=== PATIENT | male | born 1945 | race Caucasian/White ===

== ENCOUNTER 2019-05-07 15:04 | Day surgery (SDC) | payer MEDICARE, SELFPAY ==
--- NOTE | 2019-05-07 12:44 | PM.HP.1 ---
History of Present Illness Date Patient Seen: 05/07/19 Time Patient Seen: 13:44 Chief complaint: [id number] Narrative: 73yo M for surveillance colonoscopy for history of polyps. No family history of CRC, no alarm symptoms in patient. Meds Home Medications Medication Instructions Recorded Confirmed Type MULTIVITAMIN 1 cap PO QDAY #0 07/08/13 History [RED RICE YEAST] 2,500 units Q DAY #0 07/08/13 History Allergies Allergy/AdvReac Type Severity Reaction Status Date / Time codeine [CODEINE] AdvReac Intermediate NAUSEA Unverified 03/12/18 12:52 oxycodone [OXYCODONE] AdvReac Mild SLEEPINESS Unverified 03/12/18 12:52 Review of Systems Constitutional Constitutional: Reports as per HPI Exam Vital Signs (past 8 hours): AAO, NAD EOMI, MMM, no scleral icterus unlabored RA soft, nt/nd MAEW visible skin dry and intact Assessment & Plan (1) History of colon polyps: Current visit: No Status: Acute Assessment & Plan narrative: - surveillance colonoscopy --> all R/B/A discussed and pt wishes to proceed
--- NOTE | 2019-05-07 13:32 | PM.OP.ENDO ---
Operative Date/Time/Diagnoses Date of procedure: 05/07/19 Time of procedure: 15:33 Pre-op diagnosis: History of polyps Post-op diagnosis: same Procedure & Clinicians Study performed: Surveillance Colonoscopy Same procedure as scheduled: Yes Indications: 73yo m with history of colon polyps here for 5 year recall. Surgeon: Indy Merchant Procedure Notes SCOAP/Timeout: 1532 Procedure in detail: After obtaining informed consent, the patient was brought to the GI suite and placed in the left lateral decubitus position on the examination table. After placement of appropriate monitors, the patient was given incremental doses of Versed and Fentanyl until an appropriate level of sedation was achieved. A time out was held per SCOAP protocol. A digital rectal examination was performed and did not reveal any masses or obstructing lesions. The colonoscope was gently passed into the patient's anus and the entire colon navigated to the level of the cecum with minimal difficulty. Prep was adequate. Once in the cecum, the scope was slowly withdrawn being sure to go before and beyond all mucosal folds and prominences as able to get a thorough examination. No masses or polyps are noted. Other findings include a prominent ileocecal valve and slightly inverted appendiceal opening. At the level of the rectal vault, the scope was retroflexed and the internal anal canal was examined. The scope was straightened and air aspirated from the colon. The instrument was removed from the patient's body and the procedure was concluded. The patient was allowed to awaken from sedation without difficulty and taken to the post-anesthesia care unit in good condition. Scope withdrawal time: 8 min Sedation minutes: 22 Specimen(s): none sent Complications: none Impression: normal screening colonoscopy Recommendations: Colonscopy in 10 years Follow up: as needed Disposition: PACU
[2019-05-07 15:14] VITALS: BP 141/73; PULSE 63; RESP 16; TEMP 36.9; O2SAT 100; BMI 20.9
[2019-05-07] MEDS: SODIUM CHLORIDE 0.9% 1,000 ML 200 ML IV (15:20)
[2019-05-07] MEDS: MIDAZOLAM 5 MG/5 ML VIAL IV (15:44)
[2019-05-07] MEDS: fentaNYL 250 MCG/5 ML INJ IV (15:45)
[2019-05-07 16:12] VITALS: BP 150/76; PULSE 73; RESP 15; TEMP 37.8; O2SAT 99
[2019-05-07 16:23] VITALS: BP 140/75; PULSE 71; RESP 17; O2SAT 98
== END 2019-05-07 16:30 | disposition home or self-care (01) ==
LOC: ENDO 15:05
PROVIDERS: PCP Family Medicine; Visit Provider Surgery
PROC: 0DJD8ZZ Inspection of Lower Intestinal Tract, Via Natural or Artificial Opening Endoscopic (ICD-10-PCS; CPT 45378; principal; 2019-05-07 14:00)
DX: Z86.010 Personal history of colon polyps (principal); K64.4 Residual hemorrhoidal skin tags
CPT/HCPCS: G0105; J2250; J3010

== ENCOUNTER → 2021-07-26 09:45 | Outpatient (CLI) | payer MEDICARE, SELFPAY ==
--- NOTE | 2021-07-26 | DI.NM.S_ITS ---
PROCEDURE: NM HIRAM PERF SPECT REST & STR Rest and exercise myocardial perfusion SPECT with gated imaging and ejection fraction RADIOPHARMACEUTICAL: 12.4 mCi Tc-99m sestamibi IV at rest and 25.7mCi Tc-99m sestamibi IV at peak exercise. A [id number] was performed. INDICATIONS: Other specified noninflammatory disorders of cervical spine TECHNIQUE: Radiopharmaceutical was injected at peak stress test, and also at rest. SPECT images were obtained. SPECT myocardial perfusion images were displayed in short axis, horizontal long axis, and vertical long axis views. Gated images were reviewed using Tomorrow software. COMPARISON: None. CARDIAC STRESS: A standard Greg treadmill exercise tolerance test was performed by the patient under the supervision of an attending staff. The patient exercised for 5 minutes and 44 seconds; functional aerobic impairment (PRASHANT) is +3%, metabolic equivalents 6.5 (METS). Hemodynamic data: There is normal blood pressure and heart rate response to exercise stress. Patient achieved 160 of maximum predicted heart rate at peak exercise, 109% peak predicted. Symptoms: Patient denied chest pain during exercise. EKG: No diagnostic EKG changes of ischemia; there were occasional PVCs and 1 brief run of PAT. FINDINGS: Raw data: There is good myocardial labeling by radiotracer. No significant motion artifacts. Left ventricle function: Gated images demonstrate normal left ventricle wall thickening. No segmental wall motion abnormality. No transient ischemic dilation; TID is 0.88 (normal less than 1.3). The left ventricle resting end-diastolic volume is 98 mL. Left ventricle stress ejection fraction is 69; normal values are above 45%. Myocardial perfusion: There is normal distribution of activity in the left and right ventricular myocardium. No fixed or reversible perfusion defects. IMPRESSION: No myocardial perfusion defects on rest or stress images. No ST segment changes concerning for ischemia on ECG. Fair exercise capacity. Normal blood pressure response to exercise. Dictated by: Brianda Mera D.O. on 07/26/2021 at 16:14 Approved by: Brianda Mera M.D. on 07/26/2021 at 16:19
[2021-07-26 11:50] LABS: COVID19 -Nasal RAPID Negative (Negative)
== END ==
PROVIDERS: Radiology Diagnostic Radiology; PCP Family Medicine; Referring Provider Family Medicine; Visit Provider Family Medicine
DX: R07.9 Chest pain, unspecified (principal); Z20.822 Contact with and (suspected) exposure to COVID-19
CPT/HCPCS: 78452; 87635; 93017; A9502

== ENCOUNTER → 2025-10-15 13:58 | Outpatient (CLI) | payer MEDICARE, SELFPAY ==
--- NOTE | 2025-10-15 14:01 | DI.ECHO.S_ITS ---
[facility]+ [facility] : : [address] : : [place] : : [id number] : : Phone: [phone] Echocardiogram Report + + :Name: BALTAZAR NEVES Study Date: 10/15/2025 Height: 69 in : :Hospital ReadingLocation: Weight: 140 lb : : Gender: Male BSA: 1.8 m2 : :: 1945 Age: 80 yrs BP: 164/83 mmHg: :Reason For Study: Chest pain : :Ordering Physician: FANY, : :ANASTACIA Performed By: Niles Greco : :Referring: ANASTACIA SOARES : + + Interpretation Summary Normal biventricular size and systolic function. LVEF is 60 to 65%. No obvious wall motion abnormalities. Normal atrial sizes No significant valvular pathology is noted. Mild pulmonary hypertension. Other findings as below. Procedure: A two-dimensional transthoracic echocardiogram with color flow and Doppler was performed. The study quality was technically adequate. There is no prior echocardiogram noted for this patient. The patient was in normal sinus rhythm during the exam. Left Ventricle: The left ventricle is normal in size and wall thickness. Left ventricular systolic function is normal. The ejection fraction is estimated to be 60-65%. There are no focal wall motion abnormalities. Normal diastolic function. Right Ventricle: The right ventricle is normal in size and function. Atria: The left atrial size is normal. Right atrial size is normal. There is no Doppler evidence for an interatrial shunt. Mitral Valve: The mitral valve leaflets appear to open well. There is no mitral valve stenosis. There is trace mitral regurgitation. Aortic Valve: The aortic valve is trileaflet. The aortic valve opens well. There is no aortic valve stenosis. No aortic regurgitation is present. Tricuspid Valve: The tricuspid valve leaflets are thin and pliable. There is trace tricuspid regurgitation. The right ventricular systolic pressure is estimated to be at least 32 mmHg based on an estimated right atrial pressure of 3 mm Hg. Pulmonic Valve: The pulmonic valve is not well seen, but is grossly normal. There is trace pulmonic regurgitation. Great Vessels: The aortic root is normal size. The ascending aorta is normal in size. The aortic arch is normal in size. The pulmonary artery is not well visualized, but is probably normal size. The IVC is of normal diameter and collapses greater than 50% with a sniff. This suggests a low right atrial pressure of 3 mm Hg. Pericardium/ Pleura There is no pericardial effusion. MMode/2D Measurements & Calculations LVIDd: 4.6 cm LVOT diam: 2.0 cm LVIDs: 3.1 cm Ao root diam: 3.5 cm FS: 33.4 % asc Aorta Diam: 3.2 cm IVSd: 0.90 cm Ao Arch Diam (Prox Trans): 2.2 cm LVPWd: 0.93 cm LV berman. diameter/BSA (cm/m^2): 2.6 LV sys. diameter/BSA (cm/m^2): 1.7 LA A2 area: 18.0 cm2 IVC diam: 1.8 cm LA A4 area: 15.2 cm2 LA length (vol): 5.2 cm LA vol: 44.3 ml LA vol index: 25.0 ml/m2 RVD1 (basal): 3.0 cm RVD2 (mid): 2.7 cm TAPSE: 2.4 cm Doppler Measurements & Calculations Ao V2 max: 124.5 cm/sec LVOT Max Yovany: 120.0 cm/sec Ao V2 mean: 83.5 cm/sec LV V1 max P.8 mmHg Ao max P.2 mmHg LV V1 VTI: 21.5 cm Ao mean P.2 mmHg NAYLA(I,D): 2.7 cm2 Ao V2 VTI: 25.0 cm NAYLA(V,D): 3.1 cm2 sev ratio: 0.86 NAYLA indexed to BSA (cm^2/m^2): 1.5 MV E max yovany: 83.7 cm/sec TR max yovany: 268.9 cm/sec MV A max yovany: 90.5 cm/sec TR max P.9 mmHg MV E/A: 0.92 PA V2 max: 117.2 cm/sec Med Peak E' Yovany: 8.7 cm/sec PA V2 mean: 79.2 cm/sec E/E' med: 9.6 PA mean P.8 mmHg Lat Peak E' Yovany: 7.6 cm/sec PA pr(Accel): 23.8 mmHg E/E' lat: 11.0 E/e' average: 10.3 MV dec time: 0.21 sec SV(LVOT): 68.4 ml Reading Physician:03:54 PM
== END ==
PROVIDERS: PCP Family Medicine; Referring Provider Physician Assistant; Visit Provider Physician Assistant
DX: R07.89 Other chest pain (principal)
CPT/HCPCS: 93306